=== PATIENT | female | born 1970 | race Caucasian/White ===

== ENCOUNTER 2020-02-26 03:53 | Outpatient (CLI) | payer OTHER, SELFPAY ==
[2020-02-26 14:14] LABS: Abs Immature Grans 0.03 10^3/uL (0.0-0.06); Absolute Basophil Count 0.03 10^3/uL (0.0-0.2); Absolute Eosinophil Count 0.22 10^3/uL (0.0-0.7); Absolute Lymphocyte Count 1.86 10^3/uL (1.2-3.4); Absolute Monocyte Count 0.49 10^3/uL (0.1-0.8); Absolute Neutrophil Count 4.47 10^3/uL (1.2-6.7); Basophils % 0.4; Eosinophils % 3.1; HCT 41.1 % (36.0-46.0); HGB 14.1 g/dL (11.2-15.7); Immature Grans % 0.4; Lymphocytes % 26.2; MCH 29.6 pg (27.0-33.0); MCHC 34.3 % (32.0-36.0); MCV 86.3 fL (80-95); MPV 10.4 fL (8.0-11.0); Monocytes % 6.9; Nucleated RBC 0 %; Platelet Count 220 10^3/uL (130-400); RBC 4.76 10^6/uL (3.93-5.22); RDW 11.6 % (11.7-14.6); RDW-SD 37.2 fL
[2020-02-26 15:23] LABS: ALT 33 U/L (14-59); AST 28 U/L (15-37); Albumin 4.6 g/dL (3.4-5.0); Alkaline Phosphatase 45 U/L (46-116); Anion Gap 9.2 mmol/L (3-11); BUN 17 mg/dL (7-18); Bilirubin, Total 0.8 mg/dL (0.2-1.0); CO2 28.8 mmol/L (21.0-32.0); CREATININE 0.89 mg/dL (0.55-1.02); Calcium 9.3 mg/dL (8.5-10.1); Chloride 100 mmol/L (98-107); Glucose 126 mg/dL (74-106); Sodium 138 mmol/L (136-145); Total Protein 7.3 g/dL (6.4-8.2)
== END 2020-02-26 04:13 ==
PROVIDERS: PCP Emergency Medicine; Visit Provider Internal Medicine
DX: M05.79 Rheumatoid arthritis with rheumatoid factor of multiple sites without organ or systems involvement (principal); Z79.899 Other long term (current) drug therapy
CPT/HCPCS: 36415; 80053; 85025

== ENCOUNTER 2020-09-09 02:49 | Outpatient (CLI) | payer OTHER, SELFPAY ==
[2020-09-09 07:37] LABS: Abs Immature Grans 0.02 10^3/uL (0.0-0.06); Absolute Basophil Count 0.03 10^3/uL (0.0-0.2); Absolute Eosinophil Count 0.19 10^3/uL (0.0-0.7); Absolute Lymphocyte Count 1.15 10^3/uL (1.2-3.4); Absolute Monocyte Count 0.41 10^3/uL (0.1-0.8); Basophils % 0.6; Eosinophils % 3.8; HCT 37.7 % (36.0-46.0); HGB 12.3 g/dL (11.2-15.7); Immature Grans % 0.4; MCH 28.5 pg (27.0-33.0); MCHC 32.6 % (32.0-36.0); MCV 87.5 fL (80-95); MPV 10.4 fL (8.0-11.0); Monocytes % 8.2; Nucleated RBC 0 %; Platelet Count 226 10^3/uL (130-400); RBC 4.31 10^6/uL (3.93-5.22); RDW 12.6 % (11.7-14.6); RDW-SD 40.7 fL
[2020-09-09 09:03] LABS: Vitamin D 25 Total 23.7 ng/ml (30-100)
[2020-09-09 09:11] LABS: ALT 45 U/L (14-59); AST 29 U/L (15-37); Albumin 4.4 g/dL (3.4-5.0); Alkaline Phosphatase 47 U/L (46-116); Anion Gap 5.9 mmol/L (3-11); BUN 15 mg/dL (7-18); Bilirubin, Total 0.7 mg/dL (0.2-1.0); CO2 28.1 mmol/L (21.0-32.0); CREATININE 0.9 mg/dL (0.55-1.02); Calcium 9.1 mg/dL (8.5-10.1); Calculated LDL 69 mg/dL (<100); Cholesterol 178 mg/dL (<200); Glucose 97 mg/dL (74-106); HDL Cholesterol 98 mg/dL (40-60); TSH 0.67 uIU/mL (0.36-3.74); Total Protein 6.9 g/dL (6.4-8.2); Triglyceride 56 mg/dL (<150); Vitamin B12 345 pg/mL (193-986)
[2020-09-09 09:30] LABS: Chloride 104 mmol/L (98-107); FREE T4 0.91 ng/dL (0.76-1.46); Potassium 4.1 mmol/L (3.5-5.1); Sodium 138 mmol/L (136-145)
[2020-09-09 09:31] LABS: C-Reactive Protein 0.06 mg/dL (0.0-0.3); Hemoglobin A1C 5.2 % (<5.7)
[2020-09-09 16:37] LABS: ESR 2 mm/hr (<or=20)
[2020-09-09 17:05] LABS: T3,Free 3.9 pg/mL (2.8-5.3)
== END 2020-09-09 02:50 | disposition home or self-care (01) ==
LOC: LBO 02:49
PROVIDERS: PCP Emergency Medicine
DX: Z00.00 Encounter for general adult medical examination without abnormal findings (principal); M06.9 Rheumatoid arthritis, unspecified
CPT/HCPCS: 36415; 80053; 80061; 82306; 85652; 82607; 83036; 84439; 84443; 84481; 85025; 86140

== ENCOUNTER 2020-12-09 02:56 | Outpatient (CLI) | payer OTHER, SELFPAY ==
[2020-12-09 11:56] LABS: Vitamin D 25 Total 46.5 ng/mL (30-100)
== END 2020-12-09 02:57 | disposition home or self-care (01) ==
LOC: LBO 02:56
PROVIDERS: PCP Emergency Medicine; Visit Provider Naturopath
DX: E55.9 Vitamin D deficiency, unspecified (principal)
CPT/HCPCS: 36415; 82306

== ENCOUNTER 2021-03-04 03:22 | Outpatient (CLI) | payer OTHER, SELFPAY ==
[2021-03-04 15:14] LABS: COVID-19 PCR Negative (Negative)
== END 2021-03-04 03:23 | disposition home or self-care (01) ==
LOC: LBO 03:23
PROVIDERS: PCP Nurse Practitioner Adult Health; Visit Provider Surgery
DX: Z20.822 Contact with and (suspected) exposure to COVID-19 (principal); Z01.818 Encounter for other preprocedural examination
CPT/HCPCS: 87635

== ENCOUNTER 2021-03-07 06:21 | Day surgery (SDC) | payer OTHER, SELFPAY ==
[2021-03-07 06:36] VITALS: BP 123/81; PULSE 70; RESP 16; TEMP 36.6; O2SAT 95
--- NOTE | 2021-03-07 06:38 | W.COLOREPORT ---
Colonoscopy Report Date of procedure: 03/07/21 Pre-op diagnosis general: Colon Cancer Screening Post-op diagnosis procedure note: same Procedure: Colonoscopy Surgeon: Joanne Wells Anesthesia Type: General:No Airway (Kody Trimble CRNA) Estimated blood loss (mL): 0 Pathology: none sent Complications: None Disposition: same day Indications: The patient is here for Colonoscopy pre-op. She has no family history of colon cancer. She has not had any bowel habit changes. -Discussed colonoscopy bowel prep as well as the procedure. Discussed possible complications of the procedure to include bleeding, pain, perforation, missed small lesion/polyp, sore throat, aspiration and adverse reaction to the medications. Questions were answered to patient?s satisfaction. No guarantees were implied or given. Prep: Miralax/Dulcolax Procedure Start Time: 07:31 Procedure End Time: :52 Retraction Time: 10 minutes Findings: Normal large bowel Procedure Description: After informed consent was obtained the patient was taken to the procedure room and placed in a left decubitous position. Monitors were applied and a time out was done. The patients name, date of , procedure, allergies to medications and metal in their body was reviewed. The patient was then sedated. Once sedated and comfortable a rectal exam was done. External exam was normal. Internal exam revealed a normal sphincter tone and no palpable masses. The scope was then introduced and retro-flexed. No internal hemorrhoids, polyps or masses were identified on retro-flexion. The scope was then advanced to the cecum without difficulty. The ileocecal valve and appendiceal orifice were identified. The prep was good. The scope was then slowly retracted over 10 minutes back into the rectum. There were no polyps and no diverticulosis. The scope was removed and the patient was woken up and taken back to Same day surgery in stable condition. The patient tolerated the procedure well and there were no immediate complications. Follow up: The patient should follow up in 10 years unless they develop changes in bowel habits or other new gastrointestinal complaints.
--- NOTE | 2021-03-07 06:38 | W.PM.DSUDISC ---
Discharge Plan Disposition Patient Disposition: HOME Condition: Good Discharge Details Reason For Visit: Colonoscopy Attending Provider: Joanne Wells Primary Care Provider: Ofelia Renae Home Meds and New Rx's Prescriptions: Continued naproxen 375 MG tablet 375 mg PO DAILY RF: 0 hydroxychloroquine [Plaquenil] 200 MG tablet 200 mg PO DAILY RF: 0 Discharge Instructions Additional Instructions: Findings: Normal colonoscopy Follow up: 10 years Please call if you develop: fevers >101.5 Nausea or Vomiting Abdominal pain that is not transient Rectal bleeding that is more then a tbsp A hard abdomen and inability to pass gas DAY SURGERY UNIT POST ENDOSCOPY INSTRUCTIONS Instructions for everyone who is given Anesthesia: For your safety, please do the following for the next 24 Hours: a. Do not drive or operate dangerous equipment b. Do not drink alcohol beverages or use any recreational drugs for the first 24 hours or while taking pain medications. The medications in your body may have a reaction that can be dangerous. c. Do not make any important decisions or sign any important papers 1. Generally there are no restrictions on your activity after a day or so has gone by, but you may feel a bit fatigued for a few days. 2. After you arrive home you may have a light meal and return to a normal diet as you can tolerate it without feeling sick to your stomach. 3. After surgery, you may feel pain or discomfort. This should be only transient, but if it persists please contact your doctor. 4. If there are any questions regarding the findings of your procedure, please feel free to contact your doctor. 6. If you are unable to contact your doctor with a problem, contact the hospital at [phone]. 7. Continue all your regular medications unless directed otherwise. I understand the above instructions and have no questions. Signature of Patient or Responsible Adult Escort Date/Time Name of Responsible Adult Escort Signature of Nurse Date/Time Activity:: Activity as Tolerated Diet:: As Tolerated Discharge Orders Discharge Orders: Discharge Order (Routine); Ordered 03/07/21 Ordered By: Joanne Wells
[2021-03-07] MEDS: Lactated Ringers 1,000 ML 80 ML IV (06:46)
--- NOTE | 2021-03-07 07:09 | W.ANESPRE ---
General Info Date of Service Date Performed: 03/07/21 Height: 5 ft 5.5 in Weight: 70.1 kg Body Mass Index (BMI): 25.3 Surgical Procedure: Operation Date: 03/07/21 07:35 Proposed Procedures Side Surgeon p Colonoscopy Joanne Wells MD Meds Allergies and Home Medications Allergies Allergy/AdvReac Type Severity Reaction Status Date / Time No Known Allergies Allergy Unverified 03/07/21 06:35 Home Medication Medication Instructions Recorded hydroxychloroquine [Plaquenil] 200 mg PO DAILY tab-cap 11/25/15 naproxen 375 mg PO DAILY 11/25/15 Current Visit Medications: Current Medications Generic Name Dose Route Start Last Admin Trade Name Freq PRN Reason Stop Dose Admin Hyoscyamine Sulfate 0.125 mg 03/07/21 06:39 Hyoscyamine 0.125 Mg Sl/Oral/Chew SL DIRECTED PRN Ringer's Solution 1,000 mls @ 80 mls/hr 03/07/21 06:00 03/07/21 06:46 IV 04/03/21 23:59 80 mls/hr INFUSION AKASH Administration IV Miscellaneous Supplies 1 each 03/07/21 06:00 Iv Access IV 04/03/21 23:59 DIRECTED AKASH Ondansetron HCl 4 mg 03/07/21 06:39 Ondansetron 4 Mg/2 Ml Vial IVP Q4H PRN PRN Nausea / Vomiting Sodium Chloride 0 ml 03/07/21 06:00 Normal Saline Flush 10 Ml Syr IV 04/03/21 23:59 PRN PRN Sodium Chloride 0 ml 03/07/21 06:00 Normal Saline 10 Ml Vial IJ 04/03/21 23:59 DIRECTED PRN Sterile Water 0 ml 03/07/21 06:00 Water,Injection,Sterile 10 Ml Vial IJ 04/03/21 23:59 DIRECTED PRN PFSH Active Problems Active Problems: Problem Status Onset Code Screening for colon cancer Z12.11 Encounter for screening for other viral diseases Z11.59 Medical History Medical History Screening for colon cancer Surgical History Surgical History H/O partial resection of colon Gangrenous colon and laporatomy x 3 ('79, 82, '88) Small portions of colon were removed during each episode. H/O tubal ligation S/P appendectomy (Ruptured) Tobacco Smoking/Tobacco Use Status: Former Tobacco Use Alcohol Alcohol Intake: current Alcohol intake frequency: a few times a week Substance Use Substance use type: does not use Vital Signs and Lab Results Vital Signs Most Recent Vital Signs in EMR: Most Recent Vital Signs Temp Pulse Resp BP Pulse Ox 36.6 C 70 16 123/81 95 03/07/21 06:36 03/07/21 06:36 03/07/21 06:36 03/07/21 06:36 03/07/21 06:36 Lab Results Blood Type / Crossmatch: No Data to Display Complete Blood Count: No Data to Display Complete Metabolic Panel: No Data to Display Liver Function Panel: No Data to Display Coagulation Panel: No Data to Display Cardiac Panel: No Data to Display Arterial Blood Gas: No Data to Display Venous Blood Gas: No Data to Display Pancreas Panel: No Data to Display Thyroid Panel: No Data to Display Infectious Disease: Coronavirus (COVID-19)(PCR) Negative (Negative) 03/04/21 09:20 03/04/21 Coronavirus 2019 Source NASOPHARYX 03/04/21 09:20 03/04/21 Blood Cultures: No Data to Display Toxicology Panel: No Data to Display Panel: No Data to Display Anesthesia Assessment and Plan Anesthesia History Personal History: No History of Anesthesia Complications Family History: No Family History of Anesthesia Complications Exercise Tolerance Exercise Tolerance: Metabolic Equivalents>4 Pertinent Negatives Pertinent Negatives: No Symptoms of GERD Cardiac & Pulmonary Exam Cardiac Exam: Normal S1/S2 Heart Sounds Pulmonary Exam: Clear Bilateral Breath Sounds Airway Exam Known Difficult Airway: No Mallampati Class: 2 Mouth Opening: Normal (> 3cm) Thyromental Distance: Greater than 3 cm Neck Range of Motion: Full ROM Neck Circumference: Normal Teeth Condition: Normal Dentition ASA Classification ASA Score: ASA 2 Emergency Case?: No NPO Status NPO Status: NPO Clears >2 hours, Solids >8 hours Status Status: Negative HCG Anesthesia Plan Resuscitation Status: Full Code Anesthesia Technique: General Anesthesia Airway Planned: Natural Airway Monitors Used: Standard Monitors
[2021-03-07 07:34] VITALS: BMI 25.3
--- NOTE | 2021-03-07 07:45 | W.ANESPOSTOP ---
Postoperative Evaluation Date, Time and Location Date Performed: 03/07/21 Time Performed: 08:01 Patient Location: Day Surgery Unit Vital Signs Most Recent Imported Vital Signs: Most Recent Vital Signs Temp Pulse Resp BP Pulse Ox 36.6 C 70 16 123/81 95 03/07/21 06:36 03/07/21 06:36 03/07/21 06:36 03/07/21 06:36 03/07/21 06:36 Most Recent Manually Entered Vital Signs: Adult Blood Pressure: 109/65 Heart Rate: 70 Respirations: 16 Oxygen Saturation (%): 97 Temperature (C): 36.6 C Pain Score (0-10 Scale): 0 Assessment Mental Status: Awake (Alert & Oriented to Patient Baseline) Airway and Respiratory Function: Patent airway with normal (patient baseline) respiratory exam Cardiovascular Function: Hemodynamically Stable Hydration Status: Adequately Hydrated Nausea & Vomiting: No Nausea or Vomiting Pain: Pt. Denies Any Pain Peripheral Nerve Block: Patient did not receive a nerve block
[2021-03-07 08:00] VITALS: BP 109/65; PULSE 69; RESP 16; TEMP 36.6; O2SAT 97
[2021-03-07 08:01] VITALS: BP 109/65; PULSE 70; RESP 16; TEMPC 36.6; O2SAT 97
[2021-03-07 08:28] VITALS: BP 119/74; PULSE 57; RESP 16; TEMP 36.2; O2SAT 100
== END 2021-03-07 08:52 | disposition home or self-care (01) ==
PROVIDERS: PCP Nurse Practitioner Adult Health; Visit Provider Surgery
PROC: 0DJD8ZZ Inspection of Lower Intestinal Tract, Via Natural or Artificial Opening Endoscopic (ICD-10-PCS; CPT 45378; principal; 2021-03-07 07:30)
DX: Z12.11 Encounter for screening for malignant neoplasm of colon (principal)
CPT/HCPCS: 45378; J2001

== ENCOUNTER 2021-04-26 01:19 | Outpatient (CLI) | payer OTHER, SELFPAY ==
--- NOTE | 2021-04-26 06:45 | DI.MRI_ITS ---
Exam(s) MR ORBIT FACIAL NECK WO/W EXAM: MR ORBIT FACIAL NECK WO/W CLINICAL HISTORY: ? trigeminal neuralgia vs TMJ,head/jaw pain, h/o trigeminal neuralgia. TECHNIQUE: Multiplanar multisequence MRI was performed. COMPARISON: No exams were available for comparison FINDINGS: MR examination the orbital facial and upper cervical region was performed utilizing ???trigeminal ne uralgia??? protocol. This includes multi planer pre and post contrast imaging. Whole brain imaging shows a nonenhancing focus of abnormal signal on FLAIR imaging in the vizcaino radi mendoza of the left frontal region. This is nonspecific, demyelinating process or other etiology not exc luded. No additional signal abnormality identified on this study. There is no evidence of a mass lesion or enhancing lesion in the expected course of the 5th cranial n erve. No pontine signal abnormality or enhancing lesion seen. Pituitary and suprasellar region unre markable. Normal flow void in the vtkfaw-td-Meuimo vasculature. Orbital structures appear intact. No upper cervical soft tissue mass or adenopathy. IMPRESSION: The examination is negative except for of focal nonenhancing high signal lesion in left frontal coron a radiata. This measures about 6 millimeters in diameter. Findings may be associated with microvasc ular ischemic changes, demyelinating process not excluded. Please correlate clinically. Follow-up sarah pratt suggested in 6 months. DATA REPOSITORY:
[2021-04-26] MEDS: Normal Saline Flush 10 ML SYR IVP (08:20)
[2021-04-26] MEDS: Gadoterate meglumine 20 ML VIAL 14 ML IVP (08:21)
== END 2021-04-26 01:39 ==
PROVIDERS: PCP Nurse Practitioner Adult Health; Visit Provider Surgery
DX: R51.9 Headache, unspecified (principal); R68.84 Jaw pain; Z86.69 Personal history of other diseases of the nervous system and sense organs; R93.89 Abnormal findings on diagnostic imaging of other specified body structures
CPT/HCPCS: 70543

== ENCOUNTER 2021-05-12 01:12 | Outpatient (CLI) | payer OTHER, SELFPAY ==
--- NOTE | 2021-05-12 07:00 | DI.MAMMO_ITS ---
Exam(s) MAMMO SCREENING EXAM: MAMMO SCREENING CLINICAL HISTORY: screening,Z12.39. TECHNIQUE: Bilateral full field digital CC and MLO mammographic images were obtained with 3D tomosyn thesis and utilizing computer aided detection (CAD). COMPARISON: Prior mammograms dating back to 2013, the most recent being October 2017. FINDINGS: Asymmetric density located laterally in left breast is more evident prior studies. Spot compression. Right breast on the MLO view there is an asymmetric density noted anteriorly. Spot compression view recommended. Small presently benign-appearing group of microcalcifications in the left breast is noted, this locat ed 4 cm in from the nipple. IMPRESSION: Findings laterally in the left breast and anteriorly in the right breast which require spot compressi on 3D views. Left breast spot compression views should be performed in the CC plane. Right breast a dditional views should be spot compression 3D MLO and CC and straight lateral. Also recommend bilate ral breast ultrasound BI-RADS Category 0 - Assessment Incomplete: Need additional imaging evaluation Breast Density - Category B - Scattered areas of fibroglandular density Breast density Category C or D implies that the patient has dense breast tissue. Dense breast tissue can make it harder to find cancer on a mammogram. Dense breast tissue is also associated with an incr eased risk of breast cancer. This information about the result of the mammogram report was provided to the patient to raise their awareness. Use this report when you speak with the patient about their risks for breast cancer, which includes their family history. At that time, you may recommend additional screening tests (Ultrasoun d or MRI) as these tests may add significant information. A negative radiographic report should not delay biopsy if a dominant or clinically suspicious mass is present. Up to ten percent of cancers are not identified on mammography. A negative report may reinforce clinical impression. Adenosis and dense breasts may obscure an underlying neoplasm. False positive reports average 6 to 10%. Patient will receive a letter notifying them of these results.
== END 2021-05-12 01:32 ==
PROVIDERS: PCP Nurse Practitioner Adult Health; Visit Provider Nurse Practitioner Adult Health
DX: Z12.31 Encounter for screening mammogram for malignant neoplasm of breast (principal); R92.8 Other abnormal and inconclusive findings on diagnostic imaging of breast
CPT/HCPCS: 77063; 77067

== ENCOUNTER 2021-05-23 07:13 | Outpatient (CLI) | payer OTHER, SELFPAY ==
[2021-05-23 20:18] LABS: COVID-19 RT-PCR UVMMC Result Negative (Negative)
== END 2021-05-23 07:14 | disposition home or self-care (01) ==
LOC: LBO 07:14
PROVIDERS: PCP Nurse Practitioner Adult Health; Visit Provider Surgery
DX: Z20.822 Contact with and (suspected) exposure to COVID-19 (principal)
CPT/HCPCS: U0003

== ENCOUNTER 2021-05-26 01:00 | Outpatient (CLI) | payer OTHER, SELFPAY ==
--- OUTSIDE RECORDS SUMMARY | 2021-05-26 01:01 | XMS_ITS ---
:1970 Author Care Team Providers Name Role Phone Khalida Mcmillan Primary Care Provider Unavailable Allergies Code Code System Name Reaction Severity Status Onset NKDA ? Medications Name Status Start Date Stop Date ? ? D3 Liquid by [employer] Active ? Not avai lable liquid 5 drops per day (5,000IU), with a meal. duration: 3 months D3 Liquid by [employer] Active ? Not avai lable liquid 1 drop per day (1,000IU), with a meal Fish Oil Concentrate 1,000 mg capsule Active ? Not available 2 capsules per day, with food (total 2000mg) hydroxychloroquine 200 mg tablet Active ? Not available Take 1 tablet every day by oral route. Menopause Support 20 mg tablet Active ? N ot available 1-2 capsules per day, can reduce if symptoms have improved naproxen 375 mg tablet Active ? Not avail able Take 1 tablet twice a day by oral route. Problems Name Status Onset Date Source ? Rheumatoid Arthritis Active 08/30/2020 ? Menopause Active 08/30/2020 ? Vitamin D Deficiency Active 09/13/2020 ? Procedures Date Name Performed by ? ? 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 Past Encounters 12/14/2020 Menopause; Vitamin D Deficiency; Rheumat oid Arthritis Khalida Mcmillan, [place]: [address] [facility], [address] [phone], Ph. 09/13/2020 Menopause; Rheumatoid Arthritis; Vitamin D Deficiency Khalida Mcmillan, [place]: [address] [facility], [address] [phone], Ph. 08/30/2020 Adult Health Examination; Rheumatoid Art hritis; Menopause Khalida Mcmillan, [place]: [address] [facility], [address] [phone], Ph. Social History Tobacco Smoking Status Never Smoker Vaccine List Vaccine Type DTAP/IPV/HIB - non-[place] 09/22/2002 influenza, injectable, quadrivalent 03/30/2020 Notes: Moderna Dose 1 - 06/22/20 20 Dose 2 - 07/20/2020 Plan of Care Patient Goals support overall wellness, decrease menopausal symptoms Improve overall wellness, improve s leep, healthy weight, decrease menopausal symptoms healthy weight, decreased menopausa l symptoms, wellness check Patient Instructions 1. Vit D 1000 IU/day with food 2. Menopause Support: 1-2 capsules per d ay. can reduce if symptoms no longer present 3. Follow up in 6 months to recheck vit D levels, consider additional support for RA symptoms Alfredo Mcdaniels, It was wonderful to speak with you today . I will be sending you a prescription through [employer] again for Vitamin D (5,000IU/day) and Fish Oil (2,000mg/day). I am attaching the lifestyle guidelines we went over today to your patient summary as well as a sleep hygiene handout and breathing exercises. I have included a lot of resources and tips, feel free to play around with different things and see which ones resonate for you. Let's plan to follow up in 3 months to r e-check your vitamin d levels as well as to check in on how you are feeling with the lifestyle and supplement changes and how else I can support your sleep and weight goals. In the meantime, if you have any questio ns or concerns, please reach out to me directly through the portal. Happy Spring! Warmly, LEAH Mcdaniels, It was wonderful to meet you today! I shell ve sent the labs over to [facility]. I did add some inflammatory markers along with what we had talked about (CBC, CMP, lipid panel, thyroid panel, vit D and B12), with the history of rheumatoid arthritis, it would be good for us to get a baseline. Please see the attached diet/symptom tra cker to fill out for the next week. TO START THIS WEEK: JESSICA TEA (2-3 cups/day) FLAXSEED (1-2 tbs/day- you can sprinkle over your salad, add to smoothies etc) I have also sent you a prescription on [employer] for MENOPAUSE SUPPORT BY [employer]. It includes the dose of jessica (100mg) appropriate for hot flashes as well as additional herbs that support the body through menopause. There are 2 options for this supplement and will be based on your preference: 1. We start with just the jessica tea and f laxseed for 4 weeks and see how these changes, combined with next week's comprehensive lifestyle plan, help your symptoms. If it feels like there is still room fo r improvement, we can add this supplemen t in. This would be the simpler, least expensive and more food-based approach. OR 2. We start this herbal supplement now a s a more targeted approach. Everything else will stay the same in the plan, except we would reduce the jessica tea down to 1 cup/day instead of 2-3/day. The benefit of adding this in sooner would be a fast er/more targeted approach to reducing menopausal symptoms. Either option is great and depends on th e severity of your symptoms and your personal preference. Please send a message through the portal or call with any questions! Warmly, LM Reminders Provider Appointments None recorded. ? ? Lab None recorded. ? ? Referral None recorded. ? ? Procedures None recorded. ? ? Surgeries None recorded. ? ? Imaging None recorded. ? ? Vitals None recorded.
--- NOTE | 2021-05-26 14:00 | DI.US_ITS ---
Exam(s) US BREAST LT COMPLETE US BREAST RT COMPLETE MG MAMMO SCREEN CALL BACK BI EXAM: MG MAMMO SCREEN CALL BACK BI AND BILATERAL COMPLETE BREAST LTASOUND CLINICAL HISTORY: ASYMMETRIC DENSITIES. TECHNIQUE: Bilateral spot mammographic images obtained with 3D tomosynthesisand utilizing computer a ided detection (CAD). . Complete BILATERAL breast Ultrasound was also performed, including all 4 quadrants, the retroareolar regions, and both axillae. COMPARISON: Prior mammograms were reviewed. This additional imaging was performed due to findings described on the recent screening mammogram of 05/12/2020. FINDINGS: Additional bilateral mammographic views performed todayrender the previously described bilateral area s less concerning. Bilateral complete ultrasound performed today reveals no significant focal findings in the right [address] In the left breast there is a solitary finding which is a 2-3 millimeter microcyst at the 4 o'clock p osition. This benign finding does not correspond to the finding on the mammogram (which I feel is pr obably a benign lymph node or just asymmetric fibroglandular tissue). IMPRESSION: No radiographic evidence of malignancy in either breast. Also benign bilateral ultrasound findings, as described above Appropriate follow-up , as discussed by myself with the patient today, is to keep her on a yearly [facility] mogram schedule, with earlier imaging if a self detected breast change is noted.. BI-RADS Category 2 - Benign Findings Breast Density - Category C - Heterogeneously dense Breast density Category C or D implies that the patient has dense breast tissue. Dense breast tissue can make it harder to find cancer on a mammogram. Dense breast tissue is also associated with an incr eased risk of breast cancer. This information about the result of the mammogram report was provided to the patient to raise their awareness. Use this report when you speak with the patient about their risks for breast cancer, which includes their family history. At that time, you may recommend additional screening tests (Ultrasoun d or MRI) as these tests may add significant information. A negative radiographic report should not delay biopsy if a dominant or clinically suspicious mass is present. Up to ten percent of cancers are not identified on mammography. A negative report may reinforce clinical impression. Adenosis and dense breasts may obscure an underlying neoplasm. False positive reports average 6 to 10%. Patient will receive a letter notifying them of these results.
== END 2021-05-26 01:20 ==
PROVIDERS: PCP Nurse Practitioner Adult Health; Visit Provider Nurse Practitioner Adult Health
DX: R92.8 Other abnormal and inconclusive findings on diagnostic imaging of breast (principal); N60.02 Solitary cyst of left breast
CPT/HCPCS: 76642; 77063; 77067

== ENCOUNTER 2021-06-13 15:14 | Outpatient (REF) | payer OTHER, SELFPAY ==
[2021-06-13 20:46] LABS: Bilirubin Negative (Negative); Blood Trace-lysed (Negative); Clarity Sl Cloudy (Clear); Glucose Negative (Negative); Ketones Negative (Negative); Leukocyte Esterase Moderate (Negative); Nitrite Negative (Negative); Specific Gravity 1.025 (1.005-1.025); Urobilinogen 0.2 EU/dL (Up TO 0.2); pH 5.5 (5-8)
[2021-06-13 20:57] LABS: Bacteria Many HPF (Negative); C & S Indicated? Yes; Casts Negative LPF (Negative); Crystals Negative HPF (Negative); Epithelial Cells Few HPF (Negative); Mucus Negative (Negative)
== END 2021-06-13 15:15 | disposition home or self-care (01) ==
LOC: LBN 15:14
PROVIDERS: PCP Nurse Practitioner Adult Health; Visit Provider Physical Therapy Assistant
DX: R39.89 Other symptoms and signs involving the genitourinary system (principal)
CPT/HCPCS: 87077; 81003; 81015; 87086; 87186

== ENCOUNTER 2021-10-10 08:49 | Outpatient (REF) | payer BC, SELFPAY ==
--- NOTE | 2021-10-10 09:00 | PAPFT_PTH ---
PATIENT: Enedelia Louis LOC: [facility] U#:[id number] AGE/SX: 50/F ROOM: RE10/10/[address]: Ofelia Renae APRN : 1970 BED: DIS: 10/10/2021 SPEC #: [id number] RECD: 10/10/21 17:39 STATUS: SLIME REQ #: [id number] LATRELL: 10/10/21 09:[address]: Ofelia Renae DEPT: [facility] Cytology RECD BY: Acacia Sim Tissues: 1 - CX/ENDOCX FOR PAP SMEARS Procedures: PAP THIN PREP/UVM Screening HPV DNA PROBE Comments: [id number]
== END 2021-10-10 08:50 | disposition home or self-care (01) ==
LOC: LBN 08:49
PROVIDERS: PCP Nurse Practitioner Adult Health; Visit Provider Nurse Practitioner Adult Health
DX: Z11.51 Encounter for screening for human papillomavirus (HPV) (principal); Z12.4 Encounter for screening for malignant neoplasm of cervix
CPT/HCPCS: 88142; 87624

== ENCOUNTER 2021-12-27 13:54 | Outpatient (REF) | payer BC, SELFPAY ==
--- NOTE | 2021-12-27 13:50 | SKI_PTH ---
PATIENT: Enedelia Louis LOC: [facility] U#:[id number] AGE/SX: 51/F ROOM: RE12/27/[address]: DEVIN Chan : 1970 BED: DIS: 12/27/2021 SPEC #: [id number] RECD: 12/27/21 15:59 STATUS: SLIME RECourtney #: [id number] LATRELL: 12/27/21 13:[address]: Rina Calderon DEPT: Surgical Specimen RECD BY: Leana Arias ENTERED: 12/27/21 16:02 SP TYPE: CONNIE GREGORIO DR: Ofelia Renae APRN Tissues: 1 - SKIN BIOPSY(SHAVE/PUNCH) Procedures: SKIN LEVEL 4 Comments: [id number]
== END 2021-12-27 13:55 | disposition home or self-care (01) ==
LOC: LBN 13:54
PROVIDERS: PCP Nurse Practitioner Adult Health; Visit Provider Physical Therapy Assistant
DX: L82.1 Other seborrheic keratosis (principal)
CPT/HCPCS: 88305

== ENCOUNTER → 2022-05-31 02:27 | Outpatient (CLI) | payer BC, SELFPAY ==
--- NOTE | 2022-05-31 08:15 | DI.DEXA_ITS ---
Exam(s) XR DEXA BONE DENSITY W/WO LANNY EXAM: XR DEXA BONE DENSITY W/WO LANNY CLINICAL HISTORY: SCREENING FOR OSTEOPOROSIS, TMJ DISEASE,BONE LOSS OF MANDIBLE,M26.609,M27.9 TECHNIQUE: COMPARISON: No exams were available for comparison FINDINGS: DEXA scan was performed according to the usual protocol. Please see the accompanying data sheets. Findings for left hip scanning are T-score -1.0 with left femoral neck T-score -1.2. Findings for lumbar spine scanning are T-score -1.3. Findings for left forearm scanning are T-score -0.3. IMPRESSION: The measurements are consistent with osteopenia according to the WHO criteria. Lateral vertebral scanogram shows no evidence of a vertebral compression fracture. RADIATION DOSE DELIVERED: Total DLP
== END ==
PROVIDERS: PCP Nurse Practitioner Adult Health; Visit Provider Nurse Practitioner Adult Health
DX: M85.88 Other specified disorders of bone density and structure, other site (principal); M26.601 Right temporomandibular joint disorder, unspecified; M27.8 Other specified diseases of jaws
CPT/HCPCS: 77080

== ENCOUNTER 2022-06-29 12:58 | Outpatient (REF) | payer BC, SELFPAY ==
[2022-06-29 15:16] LABS: Vitamin D 25 Total 40.3 ng/mL (30-100)
== END 2022-06-29 12:59 | disposition home or self-care (01) ==
LOC: LBN 12:58
PROVIDERS: PCP Nurse Practitioner Adult Health; Visit Provider Nurse Practitioner Adult Health
DX: M85.88 Other specified disorders of bone density and structure, other site (principal)
CPT/HCPCS: 82306

== ENCOUNTER → 2023-11-14 03:31 | Outpatient (CLI) | payer BC, SELFPAY ==
--- NOTE | 2023-11-14 06:30 | DI.MAMMO_ITS ---
Exam(s) MAMMO SCREENING EXAM: MAMMO SCREENING CLINICAL HISTORY: screening,Z12.39. TECHNIQUE: Bilateral full field digital CC and MLO mammographic images were obtained with 3D tomosyn thesis and utilizing computer aided detection (CAD). COMPARISON: Prior mammograms were reviewed. Prior ultrasound examination May 2021 also reviewed. FINDINGS: There are no new findings in the right breast. In the left breast there is a small round 2 millimeter nodular density located 8 cm in from the nippl e on the CC and MLO views. There are no new spiculated masses nor new malignant appearing microcalcification groups. Small benign-appearing group of microcalcifications in the left breast is unchanged. There is no significant architectural distortion nor skin thickening-retraction. IMPRESSION: 1. No radiographic evidence of malignancy in the right breast. 2. Small 2 millimeter round left breast nodule located 8 cm in from the nipple. Spot compression vie w and ultrasound recommended to ensure that this is a benign microcyst and not a new small solid nodu le. BI-RADS Category 0 - Assessment Incomplete: Need additional imaging evaluation Breast Density - Category B - Scattered areas of fibroglandular density Breast density Category C or D implies that the patient has dense breast tissue. Dense breast tissue can make it harder to find cancer on a mammogram. Dense breast tissue is also associated with an incr eased risk of breast cancer. This information about the result of the mammogram report was provided to the patient to raise their awareness. Use this report when you speak with the patient about their risks for breast cancer, which includes their family history. At that time, you may recommend additional screening tests (Ultrasoun d or MRI) as these tests may add significant information. A negative radiographic report should not delay biopsy if a dominant or clinically suspicious mass is present. Up to ten percent of cancers are not identified on mammography. A negative report may reinforce clinical impression. Adenosis and dense breasts may obscure an underlying neoplasm. False positive reports average 6 to 10%. Patient will receive a letter notifying them of these results.
== END ==
PROVIDERS: PCP Nurse Practitioner Adult Health; Visit Provider Nurse Practitioner Adult Health
DX: Z12.39 Encounter for other screening for malignant neoplasm of breast (principal); R92.8 Other abnormal and inconclusive findings on diagnostic imaging of breast
CPT/HCPCS: 77063; 77067

== ENCOUNTER → 2023-11-16 01:07 | Outpatient (CLI) | payer BC, SELFPAY ==
--- NOTE | 2023-11-16 | DI.US_ITS ---
Exam(s) MG MAMMO SCREEN CALL BACK UNI US BREAST LT LIMITED EXAM: MG MAMMO SCREEN CALL BACK UNI CLINICAL HISTORY: SMALL ROUND 2 MM NODULAR DENSITY LEFT BREAST R92.8 ABNL MAMMO. TECHNIQUE: Craniocaudal and mediolateral oblique spot compression digital Mammography views of the l eftbreast with Tomosynthesis and left breast ultrasound. COMPARISON: MG Screening Bilat Mammo from 12/15/2015 MG Screening Bilat Mammo from 10/31/2017 MG MG MAMMO SCREENING from 05/12/2021 MG MG MAMMO SCREEN CALL BACK BI from 05/26/2021 US US BREAST RT COMPLETE from 05/26/2021 MG MG MAMMO SCREENING from 11/14/2023 FINDINGS: Mammography/Tomosynthesis: Masses: Persistent benign appearing 2 millimeter nodule in the posterior breast. Architectural Distortion: None seen. Microcalcifictions: No suspicious pleomorphic-type are seen. Skin Thickening/Nipple Retraction: None. Left breast US: Echotexture: Normal appearance of the glandular tissue. Shadowing: No suspicious foci. Cyst: None. Solid lesions: None seen. Normal appearing 5 millimeter lymph node in the posterior left breast. Ductal dilation: None. IMPRESSION: 1. No evidence of malignancy is noted. 2. Unless there is more urgent need, follow-up screening mammography is recommended, as per [place] [employer] guidelines. 3. The findings were discussed with the patient on the date of the examination. BI-RADS Category 2 - Benign Findings Breast Density - Category B - Scattered areas of fibroglandular density A mammogram that demonstrates density of C or D indicates the patient's breast tissue is dense. Dense breast tissue is very common and is not abnormal, but dense breast tissue can make it harder to find cancer on a mammogram. Also, dense breast tissue may increase their breast cancer risk. This informa tion about the result of the mammogram report was provided to the patient to raise their awareness. U se this report when you speak with the patient about their risks for breast cancer, which includes th eir family history. At that time, you may recommend for more screening tests (Ultrasound or MRI) as t hey might be useful based on their risk. A negative radiographic report should not delay biopsy if a dominant or clinically suspicious mass is present. Up to ten percent of cancers are not identified on mammography. A negative report may reinforce clinical impression. Adenosis and dense breasts may obscure an underlying neoplasm. False positive reports average 6 to 10%. Patient will receive a letter notifying them of these results.
== END ==
PROVIDERS: PCP Nurse Practitioner Adult Health; Visit Provider Nurse Practitioner Adult Health
DX: R92.8 Other abnormal and inconclusive findings on diagnostic imaging of breast (principal)
CPT/HCPCS: 76642; 77063; 77067

== ENCOUNTER 2024-03-14 16:10 | Outpatient (REF) | payer BC, SELFPAY ==
--- NOTE | 2024-03-14 14:20 | SKI_PTH ---
PATIENT: Enedelia Louis LOC: [facility] U#:[id number] AGE/SX: 53/F ROOM: RE03/14/[address]: Erwin Wise DO : 1970 BED: DIS: 03/14/2024 SPEC #: [id number] RECD: 03/14/24 18:36 STATUS: SLIME REQ #: [id number] LATRELL: 03/14/24 14:[address]: Erwin Wise DEPT: Surgical Specimen RECD BY: Acacia Sim ENTERED: 03/14/24 18:36 SP TYPE: SKI JG DR: Ofelia Renae APRN Tissues: 1 - SKIN BIOPSY(SHAVE/PUNCH) Procedures: SKIN LEVEL 4 Comments: [id number]
== END 2024-03-14 16:11 | disposition home or self-care (01) ==
LOC: LBN 16:10
PROVIDERS: PCP Nurse Practitioner Adult Health; Visit Provider Otolaryngology Otolaryngology/Facial Plastic Surgery
DX: L81.9 Disorder of pigmentation, unspecified (principal); D49.2 Neoplasm of unspecified behavior of bone, soft tissue, and skin; L82.1 Other seborrheic keratosis
CPT/HCPCS: 88305